=== PATIENT | female | born 1940 | race Two or more races ===

== ENCOUNTER 2018-04-23 23:25 | Emergency (ER) | payer OTHER ==
[~2018-04-23] VITALS: Ht 160 cm; Wt 61.2 kg
[2018-04-23] MEDS ORDERED: NAPR500T14 (23:56)
[2018-04-23] MEDS ORDERED: TYLENOL325 MG (23:56)
[2018-04-23] MEDS ORDERED: FORTAMET1000 MG (23:56)
[2018-04-24] MEDS ORDERED: NORFLEX100MG PO (02:23)
[2018-04-24] MEDS ORDERED: KETO10TA2 PO (02:23)
== END 2018-04-24 02:36 | disposition home or self-care (01) ==
LOC: ER 23:25
DX: M54.89 Other dorsalgia (principal)